=== PATIENT | female | born 1985 | race Caucasian/White ===

== ENCOUNTER 2019-03-26 09:42 | Outpatient (CLI) | payer OTHER ==
[2019-03-26 16:46] LABS: #Eosinphils 0.1 thou/uL (0.0-0.7); #Lymphocytes 1.9 thou/uL (1.20-3.40); #Monocytes 0.5 thou/uL (0.11-0.59); #Neutrophils 8.8 thou/uL (1.40-6.50); %Basophils 0.4 % (0.0-1.0); %Eosinophils 0.9 % (0.0-10.0); %Monocytes 4.7 % (0.0-10.0); Hemoglobin 13.2 g/dL (12.0-16.0); Mean Corpuscular HGB CONC 33.5 g/dL (32.0-36.0); Mean Corpuscular Hemoglobin 30.1 pg (27.0-31.0); Mean Platelet Volume 8.2 fL (7.4-10.4); Platelet Count 212 thou/uL (130-400); RBC Distribution Width 10.8 % (11.5-14.5); Red Blood Cell (RBC) Count 4.38 mill/uL (4.20-5.40); White Blood Cell (WBC) Count 11.4 thou/uL (4.8-10.8)
[2019-03-26 16:52] LABS: BHCG - Serum Negative (NEGATIVE); Pregs Control Background? CLEAR/WHITE (CLR/WHITE); Pregs Control Bar Appear? YES (CONTROL BAR)
[2019-03-26 17:33] LABS: ALT (SGPT) 11 U/L (8-55); AST (SGOT) 16 U/L (5-34); Albumin 4.5 g/dL (3.5-5.0); Alkaline Phosphatase 61 U/L (40-110); Anion Gap 12 mmol/L (10-20); BUN (Urea Nitrogen) 15 mg/dL (7.0-18.7); Bilirubin, Direct 0.2 mg/dL (0.1-0.3); Bilirubin, Total 0.5 mg/dL (0.2-1.2); Calc. Creatinine Clearance 0 mL/min (70-130); Calcium 9.7 mg/dL (7.8-10.44); Carbon Dioxide 26 mmol/L (22-29); Chloride 102 mmol/L (98-107); Estimated GFR-MDRD 81; Glucose 91 mg/dL (70-105); Protein, Total 7.3 g/dL (6.0-8.3); Sodium 136 mmol/L (136-145)
== END 2019-03-26 09:43 | disposition home or self-care (01) ==
LOC: LABBT 09:42
PROVIDERS: ATTEND Obstetrics & Gynecology
DX: Z01.812 Encounter for preprocedural laboratory examination (principal); K80.80 Other cholelithiasis without obstruction
CPT/HCPCS: 80048; 80076; 84703; 85025

== ENCOUNTER 2019-03-29 09:40 | Day surgery (SDC) | payer OTHER ==
[2019-03-26 15:48] VITALS: BMI 21.9
[~2019-03-29 09:40] MED LIST: Dexamethasone 20 MG/5 ML VIAL ONE; Glycopyrrolate 0.2 MG/ML 5 ML SYRINGE ONE; Ketorolac Tromethamine 30 MG/ML VIAL ONE; Lidocaine 1% PF 5 ML VIAL ONE; Metoclopramide HCl 10 MG/2 ML VIAL ONE; Ondansetron PF 4 MG/2 ML Vial ONE; PHENYLEPHRINE-NS 100 MCG/ML 10 ML SYRINGE ONE; PROPOFOL 200 MG/20 ML VIAL ONE; Rocuronium Bromide 10 MG/ML (10ML VIAL) ONE
[2019-03-29] MEDS ORDERED: Gabapentin 300 MG CAP ONE (10:10)
[2019-03-29] MEDS ORDERED: CeleCOXIB 100 MG CAP ONE (10:10)
[2019-03-29] MEDS ORDERED: Famotidine/PF 20 mg/2ml Vial ONE (10:10)
[2019-03-29] MEDS ORDERED: Lidocaine 1% w/Epinephrine 1:100K 20 ML VIAL ONE ×2 (10:38→10:43)
[2019-03-29] MEDS ORDERED: Bacitracin Zinc Ointment 30 gm TUBE ONE (10:38)
[2019-03-29] MEDS ORDERED: Bupivacaine 0.25% HCL 30 ML VIAL ONE (10:43)
[2019-03-29] MEDS ORDERED: Fentanyl 250 MCG/5 ML VIAL ONE (10:54)
[2019-03-29] MEDS ORDERED: Midazolam HCl 2 mg/2 ml Vial ONE ×2 (10:54→11:11)
[2019-03-29] MEDS ORDERED: Ondansetron PF 4 MG/2 ML Vial ONE (11:00)
[2019-03-29] MEDS ORDERED: Promethazine HCl 25 MG/ML VIAL ONE (13:45)
[2019-03-29] MEDS ORDERED: Meperidine HCl/PF 25 MG/ML VIAL ONE (13:57)
[2019-03-29] MEDS ORDERED: Ondansetron HCl/PF 4 MG/2 ML Vial IVP PRN (13:59)
[2019-03-29] MEDS ORDERED: Promethazine HCl 25 MG/ML VIAL IM/IV PRN (13:59)
[2019-03-29] MEDS ORDERED: Fentanyl 100 MCG/2 ML VIAL ONE (14:22)
[2019-03-29] MEDS ORDERED: HYDROcodone/Acetaminophen 5/325 mg Tablet ONE (15:40)
[2019-03-29] MEDS ORDERED: Ondansetron ODT 4 MG TAB ONE (16:23)
--- NOTE | 2019-03-29 17:04 | OP ---
DATE OF PROCEDURE: 03/29/2019 CELL COVERER: Therese Sanchez MD. SURGEON TO FOLLOW: Mike Miller MD PREOPERATIVE DIAGNOSES: 1. Left ovarian cyst with dermoid suspected. 2. Cholelithiasis. PROCEDURE PERFORMED: Robotic-assisted left ovarian cystectomy. OPERATIVE FINDINGS: 1. Normal vagina and cervix. 2. Enlarged approximate 4-5 cm left ovarian cyst with clear plane noted between dermoid cyst and healthy left ovarian tissue. 3. Normal-appearing right ovary. 4. Normal-appearing fallopian tubes bilaterally. 5. Normal-appearing uterus. PROCEDURE IN DETAIL: The patient was taken back to the OR with IV fluids running. Once she was in the OR, general anesthesia was obtained. The patient was placed in low dorsal lithotomy position and the abdomen and vagina were prepped and draped in normal fashion for gynecologic surgery. The bladder was drained approximately 400 mL of urine. The surgeons were gowned and gloved. An operative speculum was placed into the vagina with normal findings noted. A sponge on a stick was placed into the vagina for uterine manipulation if needed during the case. The surgeon's gloves were changed and attention was turned to the laparoscopic portion of the case, beginning at the supraumbilical fold. Lidocaine was injected underneath the skin. A 12-mm skin incision was made over the supraumbilical fold. A Veress needle was placed through the skin incision into the peritoneal cavity, which was insufflated without difficulty. The Veress needle was removed and a 12-mm trocar was placed through this incision and the distended abdomen without difficulty. The obturator was removed and laparoscope was placed through this trocar with the above findings noted. The patient was placed in Trendelenburg position. The right and left lower quadrant robotic 8-mm ports were placed under direct visualization as well as the right upper quadrant 11-mm port. After these ports were placed, the robotic arms were docked to the patient's bedside and the instruments were directed through the ports under laparoscopic view. Beginning at the left ovary, the left tube was grasped at the fimbriated end. The entire ovary was inspected with the laparoscope. A clear plane of healthy ovary from dermoid cyst was visible. The monopolar scissors were used to incise over the cyst at the junction of the healthy ovary and the dermoid cyst. Gentle traction was then used to separate the dermoid cyst away from the healthy ovary. Once the cyst was removed from the ovary, the ovarian fossa at the cyst site was cauterized with monopolar scissors with good hemostasis noted. The ovarian cyst was placed into an EndoCatch bag. The area of dissection was inspected again with no areas of bleeding noted. The instruments were then removed from the pelvis. The gas was released from the pelvis. The EndoCatch bag which had the string brought through the right upper quadrant port was visible just below the supraumbilical incision. A pickup was used to grasp the skin through this incision and pulled the skin and bag through the supraumbilical incision. The EndoCatch bag was then opened to the outside of the body. It was drained with suction and then pulled through the incision. The specimen was handed off for pathologic review. Of note, tissue consistent with hair was noted and confirmed dermoid cyst. The 12-mm trocar was then replaced through this incision and the abdomen was re-insufflated for continuation of the surgery with planned cholecystectomy with Dr. Miller. Prior to leaving the OR, the sponge stick was removed from the vagina. The patient was in good condition and there had been no complications. Job ID: [id number]
== END 2019-03-29 16:55 | disposition home or self-care (01) ==
LOC: SDC 09:40
PROVIDERS: ATTEND Obstetrics & Gynecology
PROC: 0UB14ZZ Excision of Left Ovary, Percutaneous Endoscopic Approach (ICD-10-PCS; principal; 2019-03-29)
DX: D27.1 Benign neoplasm of left ovary (principal); K80.10 Calculus of gallbladder with chronic cholecystitis without obstruction; Z79.899 Other long term (current) drug therapy
CPT/HCPCS: 36415; 86850; 86900; 86901; 88304; 88307; J0690; J1100; J1885; J2001; J2175; J2250; J2405; J2550; J2704; J2765; J3010; Q0162; S0020; S0028